=== PATIENT | female | born 1960 | race Caucasian/White ===

== ENCOUNTER → 2016-07-08 | Outpatient (CLI) | payer BC ==
--- NOTE | 2016-07-08 17:21 | MY ---
EXAMINATION: Bilateral digital mammography utilizing CAD. HISTORY: Screening exam. Comparison dated 09/01/2014, 04/11/2013, 03/22/2012. FINDINGS: Bilateral fibroglandular densities. There is a single view asymmetry in the subareolar right breast on the CC view. Otherwise, no suspicious calcifications, masses or architectural disto rtions. No pathologic appearing lymph nodes, no abnormal skin thickening or nipple inversion. Ot er CAD highlighted regions appear normal at this time. IMPRESSION: BI-RADS category 0 - Incomplete study. Right breast diagnostic is needed for further e valuation. THE FALSE-NEGATIVE RATE OF MAMMOGRAM IS APPROXIMATELY 10%. MANAGEMENT OF A PALPABLE ABNORMALITY MUST BE BASED UPON CLINICAL GROUNDS. SENSITIVITY FOR DETECTION OF ABNORMALITIES IN DENSE BREASTS IS LOW. NOTE: A letter will be sent to the patient regarding findings. [facility] [place] -- ZIA Herman [phone] - FAX [phone]
== END ==
LOC: MW.MAM 08:32
PROVIDERS: ATTEND Obstetrics & Gynecology
DX: Z12.31 Encounter for screening mammogram for malignant neoplasm of breast (principal)
CPT/HCPCS: G0202; G0202-26

== ENCOUNTER → 2016-07-29 | Outpatient (CLI) | payer BC ==
--- NOTE | 2016-07-30 10:52 | US ---
EXAMINATION: Right digital diagnostic mammogram with targeted ultrasound. HISTORY: Abnormal screening. Comparison is made to previous studies dated 07/08/2016. FINDINGS: A right LM view was obtained and a spot compression image was obtained in the CC projection. The previously demonstrated single view asymmetry minimally persist with spot compression. This is c omparable to the adjacent scattered glandular tissue. Additional sonographic abnormalities within th e periareolar region demonstrates no suspicious mass or fluid collection. IMPRESSION: BI-RADS category I - negative mammogram. Continued screening according to ACR-ACS guidelines [facility]. THE FALSE-NEGATIVE RATE OF MAMMOGRAM IS APPROXIMATELY 10%. MANAGEMENT OF A PALPABLE ABNORMALITY MUST BE BASED UPON CLINICAL GROUNDS. SENSITIVITY FOR DETECTION OF ABNORMALITIES IN DENSE BREASTS IS LOW. NOTE: A letter will be sent to the patient regarding findings. [facility] -- ZIA Herman [phone] - FAX [phone]
== END | disposition home or self-care (01) ==
LOC: MW.MAM 08:55
PROVIDERS: ATTEND Obstetrics & Gynecology
DX: R92.8 Other abnormal and inconclusive findings on diagnostic imaging of breast (principal)
CPT/HCPCS: 76642; G0206

== ENCOUNTER 2016-10-23 16:08 | Observation (INO) | payer BC ==
[2016-10-23] MEDS ORDERED: Sodium Chloride 0.9% 2.5 ML Syringe FLUSH PRN (16:24)
[2016-10-23] MEDS ORDERED: Aspirin 81 MG Tab.Chew PO ONE (16:24)
[2016-10-23] MEDS ORDERED: Ondansetron 4 MG/2 ML SDV IVPUSH ONE (16:24)
[2016-10-23] MEDS ORDERED: Sodium Chloride 0.9% 1,000 ML IV ONE (16:24)
[2016-10-23] MEDS ORDERED: Sodium Chloride 0.9% 10 ML Syringe FLUSH PRN (16:24)
[2016-10-23] MEDS ORDERED: Nitroglycerin 2% Oint 1 GM UD Packet TOP ONE (16:24)
[2016-10-23] MEDS ORDERED: Morphine 2 MG/ML Syringe IVPUSH ONE (16:24)
--- NOTE | 2016-10-23 16:40 | EDM.PDOC ---
ED HPI GENERAL MEDICAL PROBLEM - General Stated Complaint: CHEST PAIN Time Seen by Provider: 10/23/16 16:23 - History of Present Illness INITIAL COMMENTS - FREE TEXT/NARRATIVE: HISTORY AND PHYSICAL: History of present illness: Patient is 55-year-old female with history of hypercholesterolemia and a family history of cardiac disease or sensory concern of chest pain that she describes as tightness she equivocates regarding shortness of breath there's been no nausea vomiting palpitations or diaphoresis there is been no clear palliating or aggravating factor she has had similar episodes in the past her only workup to date is been an EKG. Review of systems: As per history of present illness and below otherwise all systems reviewed and negative. Past medical history: As per history of present illness and as reviewed below otherwise noncontributory. Surgical history: As per history of present illness and as reviewed below otherwise noncontributory. Social history: No reported history of drug or alcohol abuse. Family history: As per history of present illness and as reviewed below otherwise noncontributory. Physical exam: HEENT: Atraumatic, normocephalic, pupils reactive, negative for conjunctival pallor or scleral icterus, mucous membranes moist, throat clear, neck supple, nontender, trachea midline. Lungs: Clear to auscultation, breath sounds equal bilaterally, chest nontender. Heart: S1S2, regular, negative for clicks, rubs, or JVD. Abdomen: Soft, nondistended, nontender. Negative for masses or hepatosplenomegaly. Negative for costovertebral tenderness. Pelvis: Stable nontender. Genitourinary: Deferred. Rectal: Deferred. Extremities: Atraumatic, negative for cords or calf pain. Neurovascular unremarkable. Neuro: Awake, alert, oriented, anxious. Cranial nerves II through XII unremarkable. Cerebellum unremarkable. Motor and sensory unremarkable throughout. Exam nonfocal. Diagnostics: CBC CMP PT/INR troponin chest x-ray EKG Therapeutics: Saline 1 L bolus nitro paste 1 inch morphine sulfate 2 mg IV Zofran 4 mg IV Impression: Chest pain Definitive disposition and diagnosis as appropriate pending reevaluation and review of above. - Related Data Allergies Allergy/AdvReac Type Severity Reaction Status Date / Time No Known Allergies Allergy Verified 10/23/16 16:27 Home Meds: Home Meds Eletriptan [Relpax] 1 tab PO ASDIRECTED PRN 10/03/14 [History] Pravastatin [Pravachol] 1 tab PO DAILY 10/03/14 [History] Topiramate [Topamax] 75 mg PO DAILY 10/03/14 [History] Past Medical History Other Cardiovascular History: REports have 'slow heart rate' Other OB/BYN History: hx: ovarian cysts Other Musculoskeletal History: Low back and shoulder pain, some arthritis to finger Other Oncologic History: Pre-cancerous area recently excised to back Other Dermatologic History: Excision of area on back - Past Surgical History Other HEENT Surgeries/Procedures: [place] tooth extracted 6 months ago Other Female Surgeries/Procedures: Laparotomy for ovarian cyst, Ablation of uterus, Breast Augmentation Social & Family History - Tobacco Use Smoking Status *Q: Never Smoker - Recreational Drug Use Recreational Drug Use: No Drug Use in Last 12 Months: No ED ROS GENERAL - Review of Systems Review Of Systems: ROS reveals no pertinent complaints other than HPI. ED EXAM, GENERAL - Physical Exam Exam: See Below (See dictation) Course - Vital Signs Last Recorded V/S: Last Vital Signs Temp 36.8 C 10/23/16 16:08 Pulse 76 10/23/16 16:08 Resp 18 10/23/16 16:08 BP 121/73 10/23/16 16:08 Pulse Ox 96 10/23/16 16:23 - Orders/Labs/Meds Orders: Active Orders 24 hr Category Date Time Status Cardiac Monitoring [RC] . DIRECTED Care 10/23/16 16:23 Active EKG Documentation Completion [RC] STAT Care 10/23/16 16:23 Active Oxygen Therapy, ED [RC] ASDIRECTED Care 10/23/16 16:23 Active Pulse Oximetry [RC] ASDIRECTED Care 10/23/16 16:23 Active Chest 1V Frontal [CR] Stat Exams 10/23/16 16:24 Taken Sodium Chloride 0.9% [Saline Flush] Med 10/23/16 16:24 Active 10 ml FLUSH ASDIRECTED PRN Sodium Chloride 0.9% [Saline Flush] Med 10/23/16 16:24 Active 2.5 ml FLUSH ASDIRECTED PRN Saline Lock Insert [OM.PC] Stat Oth 10/23/16 16:23 Ordered Medication Orders Sodium Chloride (Saline Flush) 10 ml FLUSH ASDIRECTED PRN PRN Reason: Keep Vein Open Sodium Chloride (Saline Flush) 2.5 ml FLUSH ASDIRECTED PRN PRN Reason: Keep Vein Open Labs: Laboratory Tests 10/23/16 10/23/16 10/23/16 Range/Units 16:33 16:33 16:33 WBC 6.72 (4.0-11.0) K/uL RBC 4.46 (4.30-5.90) M/uL Hgb 12.7 (12.0-16.0) g/dL Hct 38.5 (36.0-46.0) % MCV 86.3 (80.0-98.0) fL MCH 28.5 (27.0-32.0) pg MCHC 33.0 (31.0-37.0) g/dL RDW Std Deviation 41.1 (28.0-62.0) fl RDW Coeff of [place] 13 (11.0-15.0) % Plt Count 235 (150-400) K/uL MPV 10.00 (7.40-12.00) fL Neut % (Auto) 55.2 (48.0-80.0) % Lymph % (Auto) 35.3 (16.0-40.0) % Saunders % (Auto) 6.8 (0.0-15.0) % Eos % (Auto) 2.1 (0.0-7.0) % Baso % (Auto) 0.6 (0.0-1.5) % Neut # (Auto) 3.7 (1.4-5.7) K/uL Lymph # (Auto) 2.4 (0.6-2.4) K/uL Saunders # (Auto) 0.5 (0.0-0.8) K/uL Eos # (Auto) 0.1 (0.0-0.7) K/uL Baso # (Auto) 0.0 (0.0-0.1) K/uL Nucleated RBC % 0.0 /100WBC Nucleated RBCs # 0 K/uL INR 0.99 (0.86-1.11) Sodium 142 (136-146) mmol/L Potassium 3.7 (3.5-5.1) mmol/L Chloride 110 (98-110) mmol/L Carbon Dioxide 25 (21-31) mmol/L BUN 22 (6.0-23.0) mg/dL Creatinine 0.8 (0.6-1.5) mg/dL Est Cr Clr Drug Dosing 77.27 mL/min Estimated GFR (MDRD) > 60.0 ml/min Glucose 98 (60-110) mg/dL Calcium 8.9 (8.8-10.8) mg/dL Total Bilirubin 0.4 (0.1-1.5) mg/dL AST 16 (5-40) IU/L ALT 18 (8-54) IU/L Alkaline Phosphatase 71 (40-150) Troponin I (0.0-0.29) NG/ML Total Protein 6.4 (6.0-8.0) g/dL Albumin 3.9 (3.5-5.0) g/dL Globulin 2.5 (2.0-3.5) g/dL Albumin/Globulin Ratio 1.6 (1.3-2.8) 10/23/16 Range/Units 16:33 WBC (4.0-11.0) K/uL RBC (4.30-5.90) M/uL Hgb (12.0-16.0) g/dL Hct (36.0-46.0) % MCV (80.0-98.0) fL MCH (27.0-32.0) pg MCHC (31.0-37.0) g/dL RDW Std Deviation (28.0-62.0) fl RDW Coeff of [place] (11.0-15.0) % Plt Count (150-400) K/uL MPV (7.40-12.00) fL Neut % (Auto) (48.0-80.0) % Lymph % (Auto) (16.0-40.0) % Saunders % (Auto) (0.0-15.0) % Eos % (Auto) (0.0-7.0) % Baso % (Auto) (0.0-1.5) % Neut # (Auto) (1.4-5.7) K/uL Lymph # (Auto) (0.6-2.4) K/uL Saunders # (Auto) (0.0-0.8) K/uL Eos # (Auto) (0.0-0.7) K/uL Baso # (Auto) (0.0-0.1) K/uL Nucleated RBC % /100WBC Nucleated RBCs # K/uL INR (0.86-1.11) Sodium (136-146) mmol/L Potassium (3.5-5.1) mmol/L Chloride (98-110) mmol/L Carbon Dioxide (21-31) mmol/L BUN (6.0-23.0) mg/dL Creatinine (0.6-1.5) mg/dL Est Cr Clr Drug Dosing mL/min Estimated GFR (MDRD) ml/min Glucose (60-110) mg/dL Calcium (8.8-10.8) mg/dL Total Bilirubin (0.1-1.5) mg/dL AST (5-40) IU/L ALT (8-54) IU/L Alkaline Phosphatase (40-150) Troponin I < 0.10 (0.0-0.29) NG/ML Total Protein (6.0-8.0) g/dL Albumin (3.5-5.0) g/dL Globulin (2.0-3.5) g/dL Albumin/Globulin Ratio (1.3-2.8) Meds: Medications Generic Name Dose Route Start Last Admin Trade Name Freq PRN Reason Stop Dose Admin Sodium Chloride 10 ml 10/23/16 16:24 Saline Flush FLUSH ASDIRECTED PRN Keep Vein Open Sodium Chloride 2.5 ml 10/23/16 16:24 Saline Flush FLUSH ASDIRECTED PRN Keep Vein Open Discontinued Medications Generic Name Dose Route Start Last Admin Trade Name Freq PRN Reason Stop Dose Admin Aspirin 324 mg 10/23/16 16:24 Aspirin PO 10/23/16 16:25 ONETIME ONE Sodium Chloride 1,000 mls @ 999 mls/hr 10/23/16 16:24 10/23/16 16:37 Normal Saline IV 10/23/16 17:24 999 mls/hr STAT ONE Administration Morphine Sulfate 2 mg 10/23/16 16:24 Morphine IVPUSH 10/23/16 16:25 ONETIME ONE Nitroglycerin 1 gm 10/23/16 16:24 Nitro-Bid 2% TOP 10/23/16 16:25 ONETIME ONE Ondansetron HCl 4 mg 10/23/16 16:24 Zofran IVPUSH 10/23/16 16:25 ONETIME ONE Departure - Departure Time of Disposition: 17:28 Disposition: Refer to Observation Condition: Good Clinical Impression: Chest pain - Discharge Information - My Orders Last 24 Hours: My Active Orders 10/23/16 16:23 Cardiac Monitoring [RC] . DIRECTED EKG Documentation Completion [RC] STAT Oxygen Therapy, ED [RC] ASDIRECTED Pulse Oximetry [RC] ASDIRECTED Saline Lock Insert [OM.PC] Stat 10/23/16 16:24 Chest 1V Frontal [CR] Stat Sodium Chloride 0.9% [Saline Flush] 10 ml FLUSH ASDIRECTED PRN Sodium Chloride 0.9% [Saline Flush] 2.5 ml FLUSH ASDIRECTED PRN - Assessment/Plan Last 24 Hours: My Active Orders 10/23/16 16:23 Cardiac Monitoring [RC] . DIRECTED EKG Documentation Completion [RC] STAT Oxygen Therapy, ED [RC] ASDIRECTED Pulse Oximetry [RC] ASDIRECTED Saline Lock Insert [OM.PC] Stat 10/23/16 16:24 Chest 1V Frontal [CR] Stat Sodium Chloride 0.9% [Saline Flush] 10 ml FLUSH ASDIRECTED PRN Sodium Chloride 0.9% [Saline Flush] 2.5 ml FLUSH ASDIRECTED PRN
[2016-10-23 17:12] LABS: CHLORIDE,CL 110 mmol/L (98-110); SODIUM,NA 142 mmol/L (136-146)
--- NOTE | 2016-10-23 23:21 | PCM.HP ---
[id number] yo female who presents with chest pain. She describes the pain as substernal chest pressure that gets better with rest and worse with exertion. She has a family history of CHF at age 50 in multiple family members. She denies any shortness of breath, or palpitations. In the ED the initial EKG and cardiac enzymes are negative and she is chest pain free. She took aspirin prior to arrival. Chest Pressure Pain Score (Numeric/FACES): 2 - Related Data Allergies/Adverse Reactions: Allergies Allergy/AdvReac Type Severity Reaction Status Date / Time No Known Allergies Allergy Verified 10/23/16 16:27 Home Medications: Home Meds Eletriptan [Relpax] 1 tab PO ASDIRECTED PRN 10/03/14 [History] Pravastatin [Pravachol] 1 tab PO DAILY 10/03/14 [History] Topiramate [Topamax] 75 mg PO DAILY 10/03/14 [History] Aspirin [Ecotrin] 81 mg PO DAILY #30 tablet. 10/24/16 [Rx] Past Medical History Cardiovascular History: Reports: High Cholesterol Other Cardiovascular History: Borderline high cholesterol. 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 Other OB/BYN History: hx: ovarian cysts Musculoskeletal History: Reports: Arthritis Other Musculoskeletal History: Low back and shoulder pain, some arthritis to finger, Oncologic (Cancer) History: Reports: Basal Cell Carcinoma Other Oncologic History: Pre-cancerous area recently excised to back Dermatologic History: Reports: Other (See Below) Other Dermatologic History: Skin basal cancer, Excision of area on back - Past Surgical History HEENT Surgical History: Reports: Oral Surgery, Tonsillectomy Other HEENT Surgeries/Procedures: [place] tooth extracted GI Surgical History: Reports: Colostomy, Other (See Below) Other GI Surgeries/Procedures: Abdominoplasty Other Female Surgeries/Procedures: Laparotomy for ovarian cyst, Ablation of uterus, Breast Reduction Other Musculoskeletal Surgeries/Procedures:: rotator cuff repair Social & Family History - Family History Family Medical History: Noncontributory - Tobacco Use Smoking Status *Q: Never Smoker Second Hand Smoke Exposure: No - Caffeine Use Caffeine Use: Reports: Coffee, Tea Other Caffeine Use: coffee everyday, tea occasionally - Recreational Drug Use Recreational Drug Use: No Drug Use in Last 12 Months: No H&P Review of Systems - Review of Systems: Review Of Systems: ROS reveals no pertinent complaints other than HPI. Exam - Exam Exam: See Below - Vital Signs Vital Signs: Last Vital Signs Temp 37.6 C 10/23/16 21:17 Pulse 63 10/23/16 21:17 Resp 17 10/23/16 21:17 BP 130/76 10/23/16 21: Pulse Ox 96 10/23/16 21:17 Weight: 83.4 kg - Exam General: Alert, Oriented, 4 HEENT: Mucosa Moist & [place] Lungs: Clear to Auscultation, Normal Respiratory Effort Cardiovascular: Regular Rate, Regular Rhythm Abdomen: Normal Bowel Sounds, Soft Extremities: 3, Normal Inspection, 10 Skin: Warm, Dry, Intact Neurological: No: Focal Deficit - Patient Data Lab Results Last 24 hrs: Laboratory Results - last 24 hr 10/23/16 Range/Units 22:26 Troponin I < 0.10 (0.0-0.29) NG/ML Result Diagrams: 10/23/16 16:33 10/23/16 16:33 *Q Meaningful Use (ADM) - VTE *Q VTE Criteria *Q: - Stroke *Q Stroke Criteria *Q: - AMI *Q AMI Criteria *Q: Problem List Initiated/Reviewed/Updated: Yes Orders Last 24hrs: Active Orders 24 hr Category Date Time Status Telemetry Monitoring [Cardiac Monitoring] [RC] Q8H Care 10/23/16 18:34 Active Heart Healthy Diet [DIET] Diet 10/23/16 Dinner Active TROPONIN I [CHEM] Q6H Lab 10/24/16 04:30 Ordered Medication Orders Sodium Chloride (Saline Flush) 10 ml FLUSH ASDIRECTED PRN PRN Reason: Keep Vein Open Sodium Chloride (Saline Flush) 2.5 ml FLUSH ASDIRECTED PRN PRN Reason: Keep Vein Open Assessment/Plan Comment:: 55 yo female who presents with chest pain. Will monitor overnight on telemetry and trend cardiac enzymes.
[2016-10-24 08:13] VITALS: BP 122/60
--- NOTE | 2016-10-24 11:24 | PCM.DCSUM1 ---
Discharge Summary - Hospital Course Free Text/Narrative:: 55-year-old female significant family history of CHF admitted for rule out acute coronary syndrome. She was complaining of substernal chest pain where she took an aspirin and reported emergency room. Her EKG did not show ST or T wave changes. Chest x-ray did not reveal any abnormalities. Her serial troponins x3 were negative. She is discharged in a stable condition. She is to resume her home medications include aspirin 81 mg once a day. She was given a prescription for outpatient exercise stress test. She is to followup with PCP - Discharge Data Discharge Date: 10/24/16 Discharge Disposition: Home, Self-Care 01 Condition: Good - Patient Instructions Diet: Heart Healthy Diet Activity: As Tolerated Driving: May Drive Today Showering/Bathing: August Shower Notify Provider of: Fever, Increased Pain, Swelling and Redness, Drainage, Nausea and/or Vomiting - Discharge Plan Prescriptions/Med Rec: Aspirin [Ecotrin] 81 mg PO DAILY #30 tablet. Home Medications: Home Meds Eletriptan [Relpax] 1 tab PO ASDIRECTED PRN 10/03/14 [History] Pravastatin [Pravachol] 1 tab PO DAILY 10/03/14 [History] Topiramate [Topamax] 75 mg PO DAILY 10/03/14 [History] Aspirin [Ecotrin] 81 mg PO DAILY #30 tablet. 10/24/16 [Rx] Patient Handouts: Nonspecific Chest Pain, [id number], Aspirin, ASA oral tablets, Exercise Stress Electrocardiogram, Care After, [id number] Referrals: [facility] [Outside] Jose Miguel Hyde MD [Physician] - 10/28/16 1:45 pm - General Info Date of Service: 10/24/16 Functional Status: Reports: pain controlled, tolerating diet, ambulating, urinating - Review of Systems General: Reports: No Symptoms HEENT: Reports: no symptoms Pulmonary: Reports: no symptoms Cardiovascular: Reports: No Symptoms Gastrointestinal: Reports: No symptoms Genitourinary: Reports: no symptoms Musculoskeletal: Reports: no symptoms Skin: Reports: no symptoms Neurological: Reports: No Symptoms Psychiatric: Reports: no symptoms - Patient Data Vitals - Most Recent: Last Vital Signs Temp 97.9 F 10/24/16 08:00 Pulse 72 10/24/16 08:00 Resp 16 10/24/16 08:00 BP 122/60 10/24/16 08:00 Pulse Ox 95 10/24/16 08:00 Weight - Most Recent: 83.4 kg I&O - Last 24 hours: Intake & Output 10/23/16 10/24/16 10/24/16 22:59 06:59 14:59 Intake Total 800 Output Total 1750 Balance -950 Lab Results - Last 24 hrs: Laboratory Results - last 24 hr 10/23/16 10/24/16 Range/Units 22:26 04:21 Troponin I < 0.10 < 0.10 (0.0-0.29) NG/ML Med Orders - Current: Current Medications Sodium Chloride (Saline Flush) 10 ml FLUSH ASDIRECTED PRN PRN Reason: Keep Vein Open Sodium Chloride (Saline Flush) 2.5 ml FLUSH ASDIRECTED PRN PRN Reason: Keep Vein Open Discontinued Medications Aspirin (Aspirin) 324 mg PO ONETIME ONE Stop: 10/23/16 16:25 Last Admin: 10/23/16 18:02 Dose: Not Given Sodium Chloride (Normal Saline) 1,000 mls @ 999 mls/hr IV STAT ONE Stop: 10/23/16 17:24 Last Admin: 10/23/16 16:37 Dose: 999 mls/hr Morphine Sulfate (Morphine) 2 mg IVPUSH ONETIME ONE Stop: 10/23/16 16:25 Last Admin: 10/23/16 18:02 Dose: Not Given Nitroglycerin (Nitro-Bid 2%) 1 gm TOP ONETIME ONE Stop: 10/23/16 16:25 Last Admin: 10/23/16 18:02 Dose: Not Given Ondansetron HCl (Zofran) 4 mg IVPUSH ONETIME ONE Stop: 10/23/16 16:25 Last Admin: 10/23/16 18:03 Dose: Not Given - Exam General: Reports: alert, oriented HEENT: Reports: Pupils equal, EOMI Neck: Reports: supple, trachea midline Lungs: Reports: Clear to auscultation, Normal respiratory effort Cardiovascular: Reports: Regular Rate, Regular Rhythm Abdomen: Reports: bowel sounds present, soft, no tenderness Back Exam: Reports: Normal Inspection, Full Range of Motion Extremities: Reports: no edema Skin: Reports: warm, dry, intact Neurological: Reports: no new focal deficit Psy/Mental Status: Reports: alert, normal affect, normal mood *Q Meaningful Use (DIS) - VTE *Q VTE Criteria *Q: - Stroke *Q Stroke Criteria *Q: - AMI *Q AMI Criteria *Q:
--- NOTE | 2016-10-24 16:11 | CR ---
EXAM DATE: 10/23/16 PATIENT'S AGE: 55 Patient: PIPPA OROSCO Facility: [place], [place] Site . Site : [id number] Study: XRay Chest [id number]/6/2017 4:59:03 PM Ordering Physician: Moni Dorsey Final Report: Indication: Chest pain and dizziness Technique: Chest 1 view Comparison: None Findings/Impression: Cardiovascular and mediastinum: Heart size and vasculature are normal in caliber and appearance. Mediastinum is within normal limits. Lungs and pleural space: Lungs are clear. No sign of infiltrate or mass. No sign of pleural effusion. No pneumothorax. Bones and soft tissues: No significant findings. Dictated by Sandie Carney MD @ Oct 23 2016 5:17PM (Electronic Signature) Report Signed by Proxy. GILLIAN
== END 2016-10-24 11:50 | disposition home or self-care (01) ==
LOC: MW.ED 16:08 → MW.MS 18:03
PROVIDERS: ADMIT Internal Medicine; ATTEND Internal Medicine
DX: R07.2 Precordial pain (principal); E78.00 Pure hypercholesterolemia, unspecified; M19.90 Unspecified osteoarthritis, unspecified site; Z85.828 Personal history of other malignant neoplasm of skin; Z82.49 Family history of ischemic heart disease and other diseases of the circulatory system; Z90.89 Acquired absence of other organs; Z98.890 Other specified postprocedural states; Z79.899 Other long term (current) drug therapy
CPT/HCPCS: 36415; 71010; 80053; 84484; 85025; 85610; 93005; 96360; 96361; 99285; J7040; 99283; G0378

== ENCOUNTER 2017-09-08 10:24 | Day surgery (SDC) | payer BC ==
[~2017-09-08 10:24] MED LIST: Lactated Ringers 1,000 ML IV SCH; Midazolam 1 MG/ML 2 ML SDV ONE; Propofol 200 MG/20 ML SDV ONE; Sodium Chloride 0.9% 10 ML Syringe FLUSH PRN; Sodium Chloride 0.9% 2.5 ML Syringe FLUSH PRN; fentaNYL 100 MCG/2 ML SDV ONE
--- NOTE | 2017-09-08 10:45 | PCM.PREANE ---
Preanesthetic Assessment - Anesthesia/Transfusion/Family Hx Anesthesia History: Prior Anesthesia Reaction Other Type of Anesthesia Reaction Comment: Get sick post surgery, prone to lightheadedness/Fainting Family History of Anesthesia Reaction: No Transfusion History: Prior Transfusion Without Reaction Intubation History: Unknown - Review of Systems General: No Symptoms Pulmonary: No Symptoms Cardiovascular: No Symptoms Gastrointestinal: Constipation, Other (repeat colonoscopy) Neurological: No Symptoms Other: Reports: None - Physical Assessment Height: 1.7 m Weight: 81.647 kg ASA Class: 2 Mental Status: Alert & Oriented x3 Airway Class: Mallampati = 2 Dentition: Reports: Normal Dentition, Implants ([id number] left (back)) Thyro-Mental Finger Breadths: 3 Mouth Opening Finger Breadths: 2 ROM/Head Extension: Full Lungs: Clear to Auscultation, Normal Respiratory Effort Cardiovascular: Regular Rate, Regular Rhythm - Allergies Allergies/Adverse Reactions: Allergies Allergy/AdvReac Type Severity Reaction Status Date / Time No Known Allergies Allergy Verified 09/03/17 09:59 - Blood Blood Available: No - Anesthesia Plan Pre-Op Medication Ordered: None - Acknowledgements Anesthesia Type Planned: MAC Pt an Appropriate Candidate for the Planned Anesthesia: Yes Alternatives and Risks of Anesthesia Discussed w Pt/Guardian: Yes Pt/Guardian Understands and Agrees with Anesthesia Plan: Yes PreAnesthesia Questionnaire HEENT History: Reports: Other (See Below) Other HEENT History: wears glasses Cardiovascular History: Reports: High Cholesterol Other Cardiovascular History: Borderline high cholesterol. [employer] History: Reports: Other OB/BYN History: hx: ovarian cysts Musculoskeletal History: Reports: Back Pain, Chronic Other Musculoskeletal History: neck andl ow back and shoulder pain, some arthritis to finger, Neurological History: Reports: Migraines Psychiatric History: Reports: Anxiety Hematologic History: Reports: Blood Transfusion(s) Oncologic (Cancer) History: Reports: Basal Cell Carcinoma Other Oncologic History: removed from back Dermatologic History: Reports: Other (See Below) Other Dermatologic History: Skin basal cancer, Excision of area on back - Past Surgical History Head Surgeries/Procedures: Reports: None HEENT Surgical History: Reports: Oral Surgery, Tonsillectomy Other HEENT Surgeries/Procedures: dental implant GI Surgical History: Reports: Colonoscopy (5 years ago) Female Surgical History: Reports: Breast Reduction, D&C, Endometrial Ablation , Hysterectomy, Other (See Below) Other Female Surgeries/Procedures: Exploratory Laparotomy Musculoskeletal Surgical History: Reports: Shoulder Surgery (rotator cuff repair ) - SUBSTANCE USE Smoking Status *Q: Never Smoker Second Hand Smoke Exposure: No Recreational Drug Use History: No - HOME MEDS Home Medications: Home Meds Eletriptan [Relpax] 40 mg PO ASDIRECTED PRN 10/03/14 [History] Pravastatin [Pravachol] 20 mg PO DAILY 10/03/14 [History] Topiramate [Topamax] 50 mg PO QAM 10/03/14 [History] Topiramate 25 mg PO BEDTIME 09/07/17 [History] - CURRENT (IN HOUSE) MEDS Current Meds: Current Medications Lactated Ringer's (Ringers, Lactated) 1,000 mls @ 125 mls/hr IV ASDIRECTED LY Sodium Chloride (Saline Flush) 10 ml FLUSH ASDIRECTED PRN PRN Reason: Keep Vein Open Sodium Chloride (Saline Flush) 2.5 ml FLUSH ASDIRECTED PRN PRN Reason: Keep Vein Open Sodium Chloride (Saline Flush) 10 ml FLUSH ASDIRECTED PRN PRN Reason: Keep Vein Open Sodium Chloride (Saline Flush) 2.5 ml FLUSH ASDIRECTED PRN PRN Reason: Keep Vein Open Discontinued Medications Fentanyl (Sublimaze) Confirm Administered Dose 100 mcg .ROUTE .STK-MED ONE Stop: 09/08/17 07:37 Midazolam HCl (Versed 1 Mg/Ml) Confirm Administered Dose 2 mg .ROUTE .STK-MED ONE Stop: 09/08/17 07:37 Propofol (Diprivan 20 Ml) Confirm Administered Dose 200 mg .ROUTE .STK-MED ONE Stop: 09/08/17 07:37
[2017-09-08] MEDS ORDERED: Propofol 200 MG/20 ML SDV ONE ×2 (10:57→11:14)
[2017-09-08] MEDS ORDERED: Midazolam 1 MG/ML 2 ML SDV ONE (11:05)
[2017-09-08 11:34] VITALS: BP 94/56
--- NOTE | 2017-09-08 11:54 | PCM.OPNOTE ---
- General Post-Op/Procedure Note Date of Surgery/Procedure: 09/08/17 Operative Procedure(s): Colonoscopy Findings: Tortuous colon, normal colonoscopy Pre Op Diagnosis: Screening colonoscopy Post-Op Diagnosis: Normal colonoscopy Anesthesia Technique: REBECCA Primary Surgeon: Eboni Landers Condition: Good Free Text/Narrative:: Intake & Output 09/07/17 09/08/17 09/08/17 22:59 06:59 14:59 Intake Total 850 Balance 850
--- NOTE | 2017-09-08 12:32 | OR ---
SURGEON: THI FELIPE MD DATE OF PROCEDURE: 09/08/2017 PREOPERATIVE DIAGNOSIS: Screening colonoscopy. POSTOPERATIVE DIAGNOSIS: Diverticulosis. PROCEDURE PERFORMED: Screening colonoscopy. ANESTHESIA: MAC. INSTRUMENT USED: Olympus colonoscope. EXTENT OF EXAM: To the cecum. PREPARATION: Good. LIMITATIONS: Tortuous colon. INDICATIONS: The patient is a 56-year-old female, who had an incomplete colonoscopy five years ago due to a poor prep and tortuous colon. Her barium enema was normal other than diverticulosis. The patient now presents for repeat colonoscopy. We discussed doing a longer prep as well as all of her options for colon cancer screening. The patient would like to try an another colonoscopy. We discussed the procedure as well as expected perioperative course. We discussed the risks including bleeding, infection, or damage to surrounding structures including perforation. The patient verbalized understanding and wishes to proceed. PROCEDURE IN DETAIL: The patient was brought to the endoscopy suite and placed in the left lateral decubitus position. A time-out was completed verifying the patient's name, age, date of , allergies, and procedure to be performed. Monitored anesthesia care was induced and continuous oxygen was provided via nasal cannula throughout the procedure. After adequate sedation was achieved, a digital rectal exam was performed. This exam was within normal limits. A well lubricated colonoscope was inserted in the rectum and advanced under direct visualization to the level of the cecum. The cecum was identified by both visual and anatomic landmarks. Photograph was taken of cecal cap as well as with the scope retroflexed within the cecum. The scope was then fully withdrawn while examining the color, texture, anatomy, and integrity of the mucosa from the cecum to the anal canal. The patient was found to have diverticulosis throughout the colon. The colon was very tortuous from the cecum down through the sigmoid. The scope was brought into the rectum and retroflexed to allow visualization of the anal canal opening. This appeared normal and a photograph was taken. The scope was then fully withdrawn. The cecum to anus time was 6 minutes. The patient tolerated the procedure well and was taken to PACU in stable condition. ENDOSCOPIC DIAGNOSIS: Diverticulosis. RECOMMENDATIONS: If the patient is aware of her diverticulosis diagnosis from before we will have her follow up in clinic in 10 years. If not she can follow up in clinic in 2 weeks for teaching about diverticulosis. ERIC GABRIEL /[id number] GILLIAN
--- NOTE | 2017-09-08 13:23 | PCM48HPAN ---
Post Anesthesia Note - EVALUATION WITHIN 48HRS OF ANESTHETIC Vital Signs in Normal Range: Yes Patient Participated in Evaluation: Yes Respiratory Function Stable: Yes Airway Patent: Yes Cardiovascular Function Stable: Yes Hydration Status Stable: Yes Pain Control Satisfactory: Yes Nausea and Vomiting Control Satisfactory: Yes Mental Status Recovered: Yes Resp Rate: 10 - COMMENTS/OBSERVATIONS Free Text/Narrative:: no anesthesia problems
== END 2017-09-08 12:10 | disposition home or self-care (01) ==
LOC: MW.SDS 10:24
PROVIDERS: ATTEND Surgery
DX: Z12.11 Encounter for screening for malignant neoplasm of colon (principal); K57.30 Diverticulosis of large intestine without perforation or abscess without bleeding; E78.00 Pure hypercholesterolemia, unspecified; G89.29 Other chronic pain; M54.9 Dorsalgia, unspecified; G43.909 Migraine, unspecified, not intractable, without status migrainosus; F41.9 Anxiety disorder, unspecified; Z79.899 Other long term (current) drug therapy
CPT/HCPCS: 45378; J2250; J3010; 77067; 77067-26; J2704

== ENCOUNTER 2022-10-28 15:37 | Emergency (ER) | payer BC ==
[2022-10-28 17:28] LABS: APPEARANCE,URINE CLEAR; BILIRUBIN,URINE NEGATIVE (NEGATIVE); COLOR,URINE YELLOW; GLUCOSE,URINE NEGATIVE (NEGATIVE); KETONES,URINE NEGATIVE (NEGATIVE); LEUKOCYTE ESTERASE,URINE NEGATIVE (NEGATIVE); NITRITE,URINE NEGATIVE (NEGATIVE); OCCULT BLOOD,URINE SMALL (NEGATIVE); PROTEIN,URINE NEGATIVE (NEGATIVE); UROBILINOGEN,URINE 0.2 EU/dL (<2.0)
[2022-10-28] MEDS ORDERED: Morphine 4 MG/ML Syringe IVPUSH ONE (17:41)
[2022-10-28] MEDS ORDERED: Ondansetron 4 MG/2 ML SDV IVPUSH ONE (17:41)
[2022-10-28] MEDS ORDERED: Sodium Chloride 0.9% 1,000 ML IV SCH (17:45)
[2022-10-28 18:01] LABS: BASOPHILS PERCENT AUTO 0.3 % (0.0-1.5); EOSINOPHILS ABSOLUTE AUTO 0.1 K/uL (0.0-0.7); EOSINOPHILS PERCENT AUTO 1.5 % (0.0-7.0); HEMATOCRIT 42.6 % (36.0-46.0); LYMPHOCYTES ABSOLUTE AUTO 1.9 K/uL (0.6-2.4); LYMPHOCYTES PERCENT AUTO 25.7 % (16.0-40.0); MEAN CORPUSCULAR HEMOGLOBIN 28.9 pg (27.0-32.0); MEAN CORPUSCULAR HGB CONC 32.9 g/dL (31.0-37.0); MONOCYTES ABSOLUTE AUTO 0.5 K/uL (0.0-0.8); MONOCYTES PERCENT AUTO 6.4 % (0.0-15.0); NEUTROPHILS ABSOLUTE AUTO 4.9 K/uL (1.4-5.7); NEUTROPHILS PERCENT AUTO 66.1 % (48.0-80.0); PLATELET COUNT,PLT 222 K/uL (150-400); RED BLOOD CELL COUNT 4.84 M/uL (4.30-5.90); WHITE BLOOD CELL COUNT,WBC 7.34 K/uL (4.0-11.0)
[2022-10-28 18:32] LABS: BACTERIA,URINE NOT SEEN (NEGATIVE); EPITHELIAL CELLS,URINE FEW (NONE-FEW); WBC,URINE NONE SEEN (0-5/HPF)
[2022-10-28 18:35] LABS: ALBUMIN 3.5 g/dL (3.4-5.0); BILIRUBIN TOTAL 0.3 mg/dL (0.2-1.0); CALCIUM 8.6 mg/dL (8.5-10.1); CARBON DIOXIDE,CO2 25.9 mmol/L (21.0-32.0); CREATININE 0.8 mg/dL (0.6-1.0); EST CRCL DRUG DOSING (CG) 71.81 mL/min; POTASSIUM,K 3.7 mmol/L (3.5-5.1)
[2022-10-28] MEDS ORDERED: Acetaminophen/HYDROcodone 325-5 MG Tab PO ONE (21:23)
[2022-10-28 23:03] VITALS: BP 120/79; PULSE 89
== END 2022-10-28 21:36 | disposition home or self-care (01) ==
LOC: MW.ED 15:37
DX: R19.03 Right lower quadrant abdominal swelling, mass and lump (principal); E78.00 Pure hypercholesterolemia, unspecified; Z79.899 Other long term (current) drug therapy
CPT/HCPCS: 36415; 76857; 80053; 81001; 81025; 85025; 96361; 96374; 96375; 99284; A9270; J2270; J2405; J7030

== ENCOUNTER 2022-11-10 20:31 | Emergency (ER) | payer BC ==
[2022-11-10] MEDS ORDERED: Sodium Chloride 0.9% 1,000 ML IV ONE (20:40)
[2022-11-10 21:22] LABS: BASOPHILS PERCENT AUTO 0.3 % (0.0-1.5); EOSINOPHILS ABSOLUTE AUTO 0.1 K/uL (0.0-0.7); EOSINOPHILS PERCENT AUTO 0.9 % (0.0-7.0); HEMATOCRIT 40.2 % (36.0-46.0); HEMOGLOBIN 13.5 g/dL (12.0-16.0); LYMPHOCYTES ABSOLUTE AUTO 0.6 K/uL (0.6-2.4); LYMPHOCYTES PERCENT AUTO 8.1 % (16.0-40.0); MEAN CORPUSCULAR HEMOGLOBIN 28.5 pg (27.0-32.0); MEAN CORPUSCULAR HGB CONC 33.6 g/dL (31.0-37.0); MONOCYTES ABSOLUTE AUTO 0.6 K/uL (0.0-0.8); MONOCYTES PERCENT AUTO 7.7 % (0.0-15.0); NEUTROPHILS ABSOLUTE AUTO 6.2 K/uL (1.4-5.7); NRBC ABSOLUTE 0 K/uL; PLATELET COUNT,PLT 280 K/uL (150-400); RED BLOOD CELL COUNT 4.73 M/uL (4.30-5.90); WHITE BLOOD CELL COUNT,WBC 7.45 K/uL (4.0-11.0)
[2022-11-10] MEDS ORDERED: Iopamidol 755 MG/ML 500 ML Multipack Bottle IVPUSH ONE (21:41)
[2022-11-10 21:53] LABS: A/G RATIO 0.6 (0.9-1.6); ALBUMIN 2.5 g/dL (3.4-5.0); BILIRUBIN TOTAL 1.2 mg/dL (0.2-1.0); CALCIUM 8.7 mg/dL (8.5-10.1); CARBON DIOXIDE,CO2 28.9 mmol/L (21.0-32.0); CREATININE 0.7 mg/dL (0.6-1.0); EST CRCL DRUG DOSING (CG) 82.07 mL/min; POTASSIUM,K 3.3 mmol/L (3.5-5.1); PROTEIN TOTAL,TP 6.7 g/dL (6.4-8.2)
[2022-11-10 21:57] LABS: LACTIC ACID 0.9 mmol/L (0.4-2.0)
[2022-11-10] MEDS ORDERED: Ketorolac 30 MG/ML SDV IVPUSH ONE (22:08)
[2022-11-10] MEDS ORDERED: Ondansetron 4 MG/2 ML SDV IVPUSH ONE (22:55)
[2022-11-10] MEDS ORDERED: fentaNYL 50 MCG/ML SDV IVPUSH ONE (23:43)
[2022-11-11] MEDS ORDERED: Morphine 4 MG/ML Syringe IVPUSH ONE (00:08)
[2022-11-11 02:32] VITALS: PULSE 68
[2022-11-11 02:39] VITALS: BP 125/64
== END 2022-11-11 01:53 | disposition home or self-care (01) ==
LOC: MW.ED 20:31
DX: K59.00 Constipation, unspecified (principal)
CPT/HCPCS: 36415; 74177; 80053; 83605; 85025; 96361; 96374; 96375; 99285; J1885; J2270; J2405; J3010; J7030; Q9967; 99284